=== PATIENT | male | born 2000 | race Native Hawaiian/Other Pacific Islander ===

== ENCOUNTER 2019-04-17 01:56 | Emergency (ER) | payer BC ==
[~2019-04-17] VITALS: Ht 167.6 cm; Wt 79.4 kg
[2019-04-17] MEDS ORDERED: PROMETHAZINE HCL 25 MG/ML 1ML IV ONE (02:15)
[2019-04-17 02:35] LABS: Basophils # (auto) 0 uL; Basophils % (auto) 0.3 % (0.0-2.0); Eosinophils # (auto) 0 uL; Eosinophils % (auto) 0.3 % (0.0-7.0); Hematocrit 47.9 % (41.0-53.0); Hemoglobin 16.6 g/dL (13.5-17.5); Lymphocytes # (auto) 1.3 uL; Lymphocytes % (auto) 14.1 % (10.0-50.0); Mean Corpuscular Hemoglobin 30.9 pg (28.0-32.0); Mean Corpuscular Hgb Conc. 34.6 g/dL (32.0-36.0); Mean Corpuscular Volume 89.3 fL (80.0-100.0); Monocytes # (auto) 0.5 uL; Monocytes % (auto) 5.2 % (0.0-12.0); Neutrophils # (auto) 7.2 uL; Neutrophils % (auto) 80.1 % (37.0-80.0); Platelet Count (auto) 208 10^3/uL (140-450); Red Blood Cells 5.36 10^6/uL (4.5-5.90); Red Cell Distribution Width 12.8 % (11.8-14.3); White Blood Cell 8.9 10^3/uL (4.4-10.8)
[2019-04-17 02:48] LABS: INR 1.13 (0.9-1.15); Partial Thromboplastin Time 30.7 sec (23.64-32.05)
[2019-04-17 02:55] LABS: Calcium 8.4 mg/dL (8.5-10.1); Potassium 4.3 mmol/L (3.5-5.1)
[2019-04-17 03:01] LABS: BUN/Creatinine Ratio 19.3; Bilirubin, Total 1.3 mg/dL (0.2-1.0); Total Protein 7.4 g/dL (6.4-8.2)
[2019-04-17] MEDS ORDERED: ALBUTEROL SULF 2.5 MG/0.5ML(0.5%) NEB SOLN NEB ONE (04:00)
[2019-04-17] MEDS ORDERED: IPRATROPIUM BROM 0.5 MG/2.5ML INH SOL NEB ONE (04:00)
[2019-04-17] MEDS ORDERED: METOCLOPRAMIDE HCL 5MG/ml INJ 2ml VIAL IV ONE (04:30)
[2019-04-17 08:11] VITALS: BP 113/72
[2019-04-17] MEDS ORDERED: ENOXAPARIN SOD 100 MG/1 ML SYRINGE SC ONE ×2 (08:19→08:30)
== END 2019-04-17 08:22 | disposition short-term general hospital (02) ==
LOC: ER 02:02
DX: I47.1 Supraventricular tachycardia (principal); I21.4 Non-ST elevation (NSTEMI) myocardial infarction; J45.901 Unspecified asthma with (acute) exacerbation
CPT/HCPCS: 36415; 71045; 80053; 80320; 82150; 83690; 83880; 84484; 85025; 85610; 85730; 93005; 96372; 96374; 96375; 99285; J1650; J2550; J2765; J7611; J7644